=== PATIENT | female | born 1945 | race Caucasian/White ===

== ENCOUNTER 2022-02-28 11:51 | Outpatient (REF) | payer MEDICARE, MEDICAID, SELFPAY ==
--- NOTE | ~2022-02-28 | XR_ITS ---
EXAMINATION: XR FEMUR, LEFT CLINICAL INFORMATION: Fall COMPARISON: Left knee and pelvis and left hip x-ray from the same day TECHNIQUE: AP and lateral views of the left femur were obtained. FINDINGS: There is severe arthritis at the left hip joint as described in the left hip joint report. There is mild arthritis at the left knee joint. The bones are osteopenic. No fracture or dislocation is seen. There is soft tissue arterial calcification. XR/XR femur LT 2V IMPRESSION: Arthritis at the left hip and knee joints. No fracture or dislocation.
--- NOTE | ~2022-02-28 | XR_ITS ---
EXAMINATION: KNEE X-RAY CLINICAL INFORMATION: Pain COMPARISON: None TECHNIQUE: Standing AP view of both knees and lateral and sunrise view of the left knee FINDINGS: Left: There is osteopenia. The left knee joint is higher than the right. There is arthritis at the femoral tibial and patellofemoral joints with small osteophytes. There is slight lateral tilt of patella on the sunrise view. There is an osteophyte at the quadriceps tendon insertion to the patella. There is a small joint effusion. Right: There is osteopenia. There are degenerative changes of the medial femoral tibial joint. There is atherosclerotic disease. XR/XR knee standing BI IMPRESSION: The left knee joint is higher than the right. There is osteopenia, left greater than right. There is atherosclerotic disease. There are degenerative changes at the left patellofemoral joint and small joint effusion.
--- NOTE | ~2022-02-28 | XR_ITS ---
EXAMINATION: XR PELVIS CLINICAL INFORMATION: Pain COMPARISON: None TECHNIQUE: AP view of the pelvis. FINDINGS: Severe left hip arthritis with marked joint space narrowing/bone on bone, osteophyte formation and subchondral cyst formation. Left acetabulum protrusio. There may be abnormal contour of the left femoral head as well. Moderate arthritis at the right hip joint with joint space narrowing and osteophyte formation. Bones of the pelvis are otherwise normal. Atherosclerotic disease.. 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
--- NOTE | ~2022-02-28 | XR_ITS ---
EXAMINATION: KNEE X-RAY CLINICAL INFORMATION: Pain COMPARISON: None TECHNIQUE: Standing AP view of both knees and lateral and sunrise view of the left knee FINDINGS: Left: There is osteopenia. The left knee joint is higher than the right. There is arthritis at the femoral tibial and patellofemoral joints with small osteophytes. There is slight lateral tilt of patella on the sunrise view. There is an osteophyte at the quadriceps tendon insertion to the patella. There is a small joint effusion. Right: There is osteopenia. There are degenerative changes of the medial femoral tibial joint. There is atherosclerotic disease. XR/XR knee LT 2V IMPRESSION: The left knee joint is higher than the right. There is osteopenia, left greater than right. There is atherosclerotic disease. There are degenerative changes at the left patellofemoral joint and small joint effusion.
== END 2022-02-28 11:52 | disposition home or self-care (01) ==
LOC: HO.HOSX 11:51
PROVIDERS: Visit Provider Orthopaedic Surgery
DX: S72.002A Fracture of unspecified part of neck of left femur, initial encounter for closed fracture (principal); M25.552 Pain in left hip; M25.562 Pain in left knee; W19.XXXA Unspecified fall, initial encounter
CPT/HCPCS: 72170; 73552; 73560; 73565; 99202

== ENCOUNTER → 2022-03-14 13:59 | Outpatient (BNVA) | payer MEDICARE, MEDICAID, SELFPAY | PROVIDERS: Visit Provider Orthopaedic Surgery | DX: M16.52 Unilateral post-traumatic osteoarthritis, left hip (principal); S72.002S Fracture of unspecified part of neck of left femur, sequela | CPT/HCPCS: 99212 ==

== ENCOUNTER → 2022-08-04 09:35 | Outpatient (BNVA) | payer MEDICARE, MEDICAID, SELFPAY | PROVIDERS: PCP Registered Nurse; Visit Provider Orthopaedic Surgery | DX: M16.4 Bilateral post-traumatic osteoarthritis of hip (principal); S72.002D Fracture of unspecified part of neck of left femur, subsequent encounter for closed fracture with routine healing; F03.90 Unspecified dementia, unspecified severity, without behavioral disturbance, psychotic disturbance, mood disturbance, and anxiety | CPT/HCPCS: 99212 ==

== ENCOUNTER 2022-09-03 06:01 | Emergency (ER) | payer MEDICARE, MEDICAID, SELFPAY ==
--- NOTE | ~2022-09-03 | XR_ITS ---
EXAMINATION: XR CHEST CLINICAL INFORMATION: Deep vein thrombosis. Pain. COMPARISON: None TECHNIQUE: Frontal view of the chest was obtained. FINDINGS: No significant abnormality is noted involving the heart, lungs, mediastinum, bony thorax or soft tissues. XR/XR chest 1V IMPRESSION: No acute cardiopulmonary findings.
--- NOTE | ~2022-09-03 | US_ITS ---
EXAMINATION: US VENOUS ULTRASOUND WITH DOPPLER LOWER EXTREMITY, BILATERAL CLINICAL INFORMATION: DVT in January 2022. Patient not taking anticoagulation. COMPARISON: None TECHNIQUE: Ultrasound of the deep veins is performed from the hip to the calf with compression sonography and color and pulse Doppler assessment. Spectral analysis with color-flow imaging is performed. FINDINGS: RIGHT: There is normal venous compression and respiratory variation and augmented flow. The visualized common femoral vein, superficial femoral vein, profunda femoral vein, popliteal vein, and the trifurcation region shows no evidence of deep venous thrombosis. There is no significant popliteal fossa cyst. LEFT: There is normal venous compression and respiratory variation and augmented flow. The visualized common femoral vein, superficial femoral vein, profunda femoral vein, popliteal vein, and the trifurcation region shows no evidence of deep venous thrombosis. There is no significant popliteal fossa cyst. Subcutaneous edema. If the patient's symptoms persist, followup ultrasound in 5 days 7 days might be of value to exclude proximal propagation from a non-visualized calf vein. US/US venous duplex LE BI IMPRESSION: No DVT demonstrated in the bilateral lower extremity. Left lower extremity subcutaneous venous edema.
[2022-09-03 06:11] VITALS: BP 157/74; PULSE 74; RESP 14; TEMP 36.8; O2SAT 97; BMI 25.6
--- NOTE | 2022-09-03 06:26 | ECG_ITS ---
Test Reason : NAUSEA Blood Pressure : / mmHG Vent. Rate : 087 BPM Atrial Rate : 087 BPM P-R Int : 144 ms QRS Dur : 090 ms QT Int : 376 ms P-R-T Axes : 042 019 026 degrees QTc Int : 452 ms Sinus rhythm with Premature atrial complexes Moderate voltage criteria for LVH, may be normal variant ( R in aVL , Sokolow-Schulz ) Borderline ECG When compared with ECG of 08-DEC-2011 13:18, Premature atrial complexes are now Present Vent. rate has increased BY 36 BPM T wave inversion no longer evident in Anterior leads Referred By: Generic ED Physician Electronically Signed By:JACKIE STOCKTON
--- NOTE | 2022-09-03 06:33 | ED.GENADULT ---
HPI - General Adult General Chief complaint: Extremity Problem Stated complaint: legs swelling Time Seen by Provider: 09/03/22 06:32 Source: family Mode of arrival: ambulatory Limitations: language barrier History of Present Illness HPI narrative: According to daughter the patient has had diarrhea and nausea. The daughter noticed that both legs are swollen and she is concerned because her mother has a DVT, and patient is on eliquis since January. Onset (ago): day(s) Radiation: non-radiation Severity: mild Associated symptoms: nausea/vomiting and other (diarrhea) Related Data Allergies Allergy/AdvReac Type Severity Reaction Status Date / Time Penicillins [PENICILLINS] Allergy Intermediate RASH Verified 08/04/22 09:55 Penicillin Allergy Unknown Unknown Uncoded 02/28/22 13:57 Review of Systems Review of Systems: Yes Unobtainable due to mental status FORMERLY [facility], [facility]1983 Social History Social History Smoked in Last 30 Days: No Use of substances other than those prescribed or required for medical reasons: No Advance Directives: No Advance Directives Information Provided: Yes Physical Exam ED Vital Signs: Vital Signs - 24 hr 09/03/22 06:11 09/03/22 07:31 Temperature 98.2 F Pulse Rate 74 84 Respiratory Rate 14 16 Blood Pressure 157/74 H Pulse Oximetry 97 95 Oxygen Delivery Method Room Air Room Air BMI result Body Mass Index 25.6 Const General: healthy appearing Nutritional Appearance: average body habitus Orientation/consciousness: oriented to person Limitations: no limitations HENMT Head: Yes normal to inspection Ears: external ears normal General nose exam: Normal external nose present Mouth: Normal oral and palatal mucosa present and oropharynx normal Throat: Yes posterior oropharynx normal Eyes General: appearance normal, both eyes and all related structures Neck Neck: Yes normal visual inspection Chest Chest palpation & inspection: normal inspection of the chest Resp Auscultation: clear to auscultation bilaterally Cardio Jugular venous distension: no JVD Rate: regular rate Rhythm: regular rhythm Heart sounds: S1 normal heart sound present and S2 normal heart sound present GI Inspection: Yes normal to inspection Palpation (GI): Soft to palpation, nontender and No hepatosplenomegaly present Auscultation: normal bowel sounds General: Yes no CVA tenderness Back/Spine/Pelvis Back: no CVA tenderness Skin General skin exam: no rashes or lesions noted Neuro General: oriented to person Cranial nerves: Yes CN's II-XII intact bilaterally Motor exam (neuro): 5/5 motor strength present throughout Extrem Other: bilateral pitting edema Psych Other: mental status baseline Course Reevaluation(s) Reevaluation #1: Patient looks well, no evidence of infection or dvt will dc with family Time: 09:04 Medications Administered Discontinued Medications Generic Name Dose Route Start Last Admin Trade Name Freq PRN Reason Stop Dose Admin Ondansetron HCl 4 mg 09/03/22 06:38 09/03/22 07:26 Ondansetron Hcl 4 Mg/2 Ml Vial IVPUSH 09/03/22 06:39 4 mg ONCE ONE Administration Medical Decision Making Lab Data 09/03/22 07:00 09/03/22 06:59 Labs: Lab Results 09/03/22 09/03/22 09/03/22 Range/Units 06:59 06:59 06:59 WBC (4.8-10.8) X10*3/uL RBC (4.20-5.50) X10*6/uL Hgb (12.0-16.0) g/dl Hct (37.0-47.0) % MCV (80.0-98.0) fL MCH (27.0-33.0) pg MCHC (31.0-35.0) g/dl RDW (11.0-16.0) % Plt Count (160-400) X10*3/uL MPV (9.4-12.3) fL Immature Gran % (Auto) (0.0-0.4) % Neut % (Auto) (45-73) % Lymph % (Auto) (20-40) % [place] % (Auto) (2-11) % Eos % (Auto) (0-4) % Baso % (Auto) (0-2) % Lymph # (Auto) (1.2-4.9) X10*3/uL [place] # (Auto) (0.1-1.2) X10*3/uL Eos # (Auto) (0.0-0.4) X10*3/uL Baso # (Auto) (0.0-0.2) X10*3/uL Abs Immat Gran (auto) (0.00-0.03) X10*3/uL Absolute Neuts (auto) (2.0-8.3) x10*3/uL Absolute Nucleated RBC (0.0-0.012) X10*3/uL Nucleated RBC % (auto) (0.0-0.2) /100WBC D-Dimer High Sensitivty NG/ML Sodium 138 (135-145) mmol/L Potassium 4.2 (3.3-5.1) mmol/L Chloride 106 (96-108) mmol/L Carbon Dioxide 24 (22-29) mmol/L Anion Gap 12 (12-20) BUN 21 H (9-16) mg/dL Creatinine 0.68 (0.5-1.4) mg/dL Estim Creat Clear Calc 60.6 Estimated GFR > 60 Random Glucose 119 H (60-115) mg/dL Calcium 10.0 (8.4-10.2) mg/dL Troponin I High Sens 5.5 (<3.5-17.0) ng/L B-Natriuretic Peptide 51 (<100) pg/mL Influenza Type A (PCR) (Negative) Influenza Type B (PCR) (Negative) RSV RNA Qual (PCR) (Negative) SARS-CoV-2 RNA (RT-PCR) (Negative) 09/03/22 09/03/22 09/03/22 Range/Units 06:59 07:00 07:01 WBC 8.9 (4.8-10.8) X10*3/uL RBC 3.37 L (4.20-5.50) X10*6/uL Hgb 9.6 L (12.0-16.0) g/dl Hct 28.6 L (37.0-47.0) % MCV 84.9 (80.0-98.0) fL MCH 28.5 (27.0-33.0) pg MCHC 33.6 (31.0-35.0) g/dl RDW 13.1 (11.0-16.0) % Plt Count 195 (160-400) X10*3/uL MPV 9.1 L (9.4-12.3) fL Immature Gran % (Auto) 0.2 (0.0-0.4) % Neut % (Auto) 87.3 H (45-73) % Lymph % (Auto) 8.4 L (20-40) % [place] % (Auto) 3.9 (2-11) % Eos % (Auto) 0.1 (0-4) % Baso % (Auto) 0.1 (0-2) % Lymph # (Auto) 0.8 L (1.2-4.9) X10*3/uL [place] # (Auto) 0.4 (0.1-1.2) X10*3/uL Eos # (Auto) 0.0 (0.0-0.4) X10*3/uL Baso # (Auto) 0.0 (0.0-0.2) X10*3/uL Abs Immat Gran (auto) 0.02 (0.00-0.03) X10*3/uL Absolute Neuts (auto) 7.8 (2.0-8.3) x10*3/uL Absolute Nucleated RBC 0.000 (0.0-0.012) X10*3/uL Nucleated RBC % (auto) 0.0 (0.0-0.2) /100WBC D-Dimer High Sensitivty 549 NG/ML Sodium (135-145) mmol/L Potassium (3.3-5.1) mmol/L Chloride (96-108) mmol/L Carbon Dioxide (22-29) mmol/L Anion Gap (12-20) BUN (9-16) mg/dL Creatinine (0.5-1.4) mg/dL Estim Creat Clear Calc Estimated GFR Random Glucose (60-115) mg/dL Calcium (8.4-10.2) mg/dL Troponin I High Sens (<3.5-17.0) ng/L B-Natriuretic Peptide (<100) pg/mL Influenza Type A (PCR) NEGATIVE (Negative) Influenza Type B (PCR) NEGATIVE (Negative) RSV RNA Qual (PCR) NEGATIVE (Negative) SARS-CoV-2 RNA (RT-PCR) NEGATIVE (Negative) Independent Interpretation I performed an independent interpretation of an: EKG, Plain X-Ray (My interpretation of this xray is no infiltrate) and Ultrasound (IMPRESSION: No DVT demonstrated in the bilateral lower extremity. Left lower extremity subcutaneous venous edema. Dictated By:Christian Vieira MDSigned By:<Electronically signed by Christian Vieira MD in [place]>09/03/22 [id number]) Interpretation: my interpretation is sinus rhythm rate of 85, no st or twave changes, occaisional apc Discharge Plan Discharge Clinical Impression: Edema, peripheral Patient Disposition: Home, Self-Care Instructions: Leg Edema (ED) Referrals: [facility] [Primary Care Provider] - 1 week Interventions: ED Discharge Assessment Last Done: 09/03/22 09:27 Discharge Date/Time: 09/03/22 09:28
--- OUTSIDE RECORDS SUMMARY | 2022-09-03 06:52 | XMS_ITS | Continuity of Care Document ---
:1945 Author Organization [facility] Address [address] [place] [address]- Care Team Providers Name Role Phone Ro , Johnny Cruz Primary Care Physician Encounter [facility] Date(s): 05/13/21 - 08/18/[address] [address]- Attending Physician: Not on Staff, Attending
--- OUTSIDE RECORDS SUMMARY | 2022-09-03 06:52 | XMS_ITS | Continuity of Care Document ---
:1945 Author Organization [facility] Address [address] [place] [address]- Care Team Providers Name Role Phone Ro , Johnny Cruz Primary Care Physician Encounter [facility] Date(s): 06/21/21 - 08/19/[address] [address]- Attending Physician: Sreedhar Hernández MD Admitting Physician: Sreedhar Hernández MD
--- OUTSIDE RECORDS SUMMARY | 2022-09-03 06:52 | XMS_ITS | Continuity of Care Document ---
:1945 Author Organization [facility] Address [address] [place] [id number]- Care Team Providers Name Role Phone Ro Johnny HUMPHREY Primary Care Physician Encounter [facility] ACCT R [id number] Date(s): 07/20/21 - 08/19/[address] [address]- Attending Physician: Dee Darnell Admitting Physician: Dee Darnell Referring Physician: Dee Darnell
[2022-09-03 07:06] LABS: MANUAL DIFF FLAG NO
--- NOTE | 2022-09-03 07:09 | PC.NURSE ---
this rn notified dr gudino of pt hx of dvt and refusing to take prescribed eliquis. per md will discuss with oncoming md. dr chaves came in and assessed pt. discussed case with daughter at bedside. iv place and labs obtained and sent down to lab
[2022-09-03 07:16] LABS: Basophils Percent Auto 0.1 % (0-2); Eosinophils Percent Auto 0.1 % (0-4); Hematocrit 28.6 % (37.0-47.0); Hemoglobin 9.6 g/dl (12.0-16.0); Imm Gran Abs Auto 0.02 X10*3/uL (0.00-0.03); Imm Gran Pct Auto 0.2 % (0.0-0.4); Lymphocytes Absolute Auto 0.8 X10*3/uL (1.2-4.9); Lymphocytes Percent Auto 8.4 % (20-40); Mean Corpuscular HGB Conc 33.6 g/dl (31.0-35.0); Mean Corpuscular Hemoglobin 28.5 pg (27.0-33.0); Mean Corpuscular Volume 84.9 fL (80.0-98.0); Mean Platelet Volume 9.1 fL (9.4-12.3); Monocytes Absolute Auto 0.4 X10*3/uL (0.1-1.2); Monocytes Percent Auto 3.9 % (2-11); Neutrophils Absolute Auto 7.8 x10*3/uL (2.0-8.3); Neutrophils Percent Auto 87.3 % (45-73); Platelet Count 195 X10*3/uL (160-400); Red Blood Count 3.37 X10*6/uL (4.20-5.50); Red Cell Distribution Width 13.1 % (11.0-16.0); White Blood Count 8.9 X10*3/uL (4.8-10.8)
[2022-09-03 07:22] LABS: Anion Gap 12 (12-20); Blood Urea Nitrogen 21 mg/dL (9-16); Carbon Dioxide 24 mmol/L (22-29); Chloride 106 mmol/L (96-108); Creatinine Clr Calc Pharmacy 60.6; Estimated Glomerular Filt Rate > 60; Glucose Random 119 mg/dL (60-115); Potassium 4.2 mmol/L (3.3-5.1); Sodium 138 mmol/L (135-145)
[2022-09-03 07:24] LABS: D Dimer High Sensitivity 549 NG/ML
[2022-09-03] MEDS: ondansetron HCL 4 MG/2 ML VIAL IVPUSH (07:26)
[2022-09-03 07:29] LABS: B Type Natriuretic Peptide 51 pg/mL (<100); Troponin-I High Sensitivity 5.5 ng/L (<3.5-17.0)
[2022-09-03 07:31] VITALS: PULSE 84; RESP 16; O2SAT 95
--- NOTE | 2022-09-03 07:35 | PC.NURSE ---
Pt resting comfortably, denies any concerns at this time, reports hungry. B/L LE swelling worse on right however daughter states prior DVT to left with treatment on Eliquis however pt noncompliant with nuclear medicine physician. NSR on monitor with PACS. Breathing easy
[2022-09-03 07:49] LABS: Influenza A PCR NEGATIVE (Negative); Influenza B PCR NEGATIVE (Negative); Resp Syncy Virus RNA Qual PCR NEGATIVE (Negative); SARS COV2 PCR INHOUSE NEGATIVE (Negative)
== END 2022-09-03 09:28 | disposition home or self-care (01) ==
PROVIDERS: Emergency Provider Emergency Medicine
DX: R60.0 Localized edema (principal); R11.2 Nausea with vomiting, unspecified; Z20.822 Contact with and (suspected) exposure to COVID-19; F03.90 Unspecified dementia, unspecified severity, without behavioral disturbance, psychotic disturbance, mood disturbance, and anxiety; Z86.718 Personal history of other venous thrombosis and embolism; Z91.14 Patient's other noncompliance with medication regimen; Z20.828 Contact with and (suspected) exposure to other viral communicable diseases
CPT/HCPCS: 0241U; 36415; 71045; 80048; 83880; 84484; 85025; 85379; 93005; 93970; 96374; 99284; J2405

== ENCOUNTER 2022-11-11 11:14 | Emergency (ER) | payer MEDICARE, MEDICAID, SELFPAY ==
[2022-11-11 11:19] VITALS: BP 129/73; PULSE 82; RESP 16; TEMP 36.8; O2SAT 98; BMI 27.4
--- NOTE | 2022-11-11 11:24 | ED.GENADULT ---
HPI - General Adult General Chief complaint: Extremity Problem Stated complaint: scratched legs,L leg pain Time Seen by Provider: 11/11/22 11:24 Source: patient, family (daughter) and full time staff interpreter Mode of arrival: ambulatory Limitations: language barrier History of Present Illness HPI narrative: Patient is a 77 year old assigned female at with a history of DM and osteoarthritis presenting to the emergency department today with chronic left hip pain and bilateral lower leg redness and itching. Patient's daughter states that the patient has diabetes and has been scratching at her lower legs more lately and she is concerned about how they look. Patient denies any dizziness, lightheadedness, abdominal pain, nausea, vomiting, fever, chills, blurry vision, double vision, loss of vision, chest pain, difficulty breathing, shortness of breath, back pain, night sweats, pain with urination, increased urinary frequency, increased urinary urgency, blood in her urine or stool, syncope or a near syncopal episode, recent trauma or falls, bowel incontinence, bladder incontinence, bowel retention, bladder retention, or any other complaints at this time. Onset (ago): day(s) Location: left, right and lower extremity Severity: mild Severity scale (1-10): 3 Relieving factors: none Exacerbating factors: none Associated symptoms: denies other symptoms Treatments prior to arrival: none Related Data Previous Rx's Medication Instructions Recorded cephalexin 500 mg capsule 500 mg PO Q6H 7 days #28 caps 11/11/22 miscellaneous medical supply #1 ea 11/11/22 Allergies Allergy/AdvReac Type Severity Reaction Status Date / Time Penicillins [PENICILLINS] Allergy Intermediate RASH Verified 11/11/22 11:19 Penicillin Allergy Unknown Unknown Uncoded 02/28/22 13:57 Review of Systems Constitutional: Constitutional: Reports no additional constitutional complaints, Denies chills, Denies fever(s) and Denies night sweats Eyes: Eyes: Reports no additional eye complaints, Denies blurry vision, Denies change in vision, Denies diplopia, Denies eye discharge, Denies loss of vision and Denies eye pain ENT: Denies dizziness Cardiovascular: Cardiovascular: Reports no additional cardiovascular complaints, Denies chest pain, Denies lightheadedness, Denies Loss of Consciousness and Denies dyspnea Respiratory: Respiratory: Reports no additional respiratory complaints and Denies dyspnea Gastrointestinal: Gastrointestinal: Reports no additional gastrointestinal complaints, Denies abdominal pain, Denies melena, Denies hematochezia, Denies change in bowel habits and Denies change in stool character Genitourinary: Genitourinary: Denies hematuria, Denies urinary frequency, Denies dysuria, Denies urinary incontinence, Denies urinary hesitancy and Denies urinary urgency Musculoskeletal: Musculoskeletal: Reports no additional musculoskeletal complaints, Denies numbness and Denies tingling Integumentary/Breasts: Comments: bilateral lower leg redness Neurologic: Denies dizziness, Denies loss of vision, Denies numbness and Denies tingling Psychiatric: Psychiatric: Reports no additional psychiatric complaints Endocrine: Endocrine: Reports no additional endocrine complaints Hematologic/Lymphatic: Hematologic/Lymphatic: Reports no additional hematologic/lymphatic complaints Allergic/Immunologic: Allergic/Immunologic: Reports no additional allergic/immunologic complaints PMFSH Past Medical History Attestation statement: The following information was validated with the patient. (all information was validated with the patient's daughter) Source: old records reviewed, obtained from family (patient's daughter) and nursing notes reviewed Social History Social History Advance Directives: Yes Advance Directives Information Provided: No Advance Directives on File: No Physical Exam ED Vital Signs: Vital Signs - 24 hr 11/11/22 11:19 Temperature 98.2 F Pulse Rate 82 Respiratory Rate 16 Blood Pressure 129/73 Pulse Oximetry 98 Oxygen Delivery Method Room Air BMI result Body Mass Index 27.4 Const General: cooperative, no acute distress, alert and awake Nutritional Appearance: well nourished Orientation/consciousness: patient oriented x3 Limitations: no limitations [facility] Head: Yes normal to inspection and Yes atraumatic Ears: hearing grossly normal bilaterally and external ears normal General nose exam: Normal external nose present, no nasal discharge noted and no epistaxis Face and sinus: Yes normal facial exam, No abrasion and No laceration Mouth: Normal oral and palatal mucosa present, no drooling and no muffled voice Eyes General: appearance normal, both eyes and all related structures Periorbital: periorbital findings normal Eyelids: Yes eyelids normal Conjunctivae: conjunctivae normal Pupils: Equal, round and reactive pupils present EOM: EOMs intact bilaterally Neck Neck: Yes normal visual inspection, Yes full ROM and Yes no lymphadenopathy Chest Chest palpation & inspection: normal inspection of the chest Resp Effort & Inspection: normal respiratory effort and able to speak in complete sentences Auscultation: clear to auscultation bilaterally Cardio Rate: regular rate Rhythm: regular rhythm GI Inspection: Yes normal to inspection Skin Other: patient's bilateral lower legs are erythematous with scattered open areas consistent with venous stasis dermatitis Neuro General: patient oriented x3 and moves all extremities Cranial nerves: Yes Equal, round and reactive pupils present Cognition (Neuro): normal cognition Motor exam (neuro): 5/5 motor strength present throughout Sensory Exam: Normal double simultaneous stimulation for sensation Coordination: [id number] test normal Extrem General: Yes normal to inspection, Yes full ROM and Yes capillary refill normal Psych Appearance: grossly normal Mental Status: mental status grossly normal Affect: normal affect Attitude: cooperative Thought process: Normal thought process present Thought content: Normal thought content present Insight: Good insight present (Psych) Medical Decision Making Medical Decision Making MDM Narrative: Patient is a 77 year old assigned female at with a history of DM presenting to the emergency department today with bilateral lower leg redness. Patient's physical exam showed mild erythema with multiple small open areas to bilateral lower extremities but was otherwise unremarkable. I explained my physical exam findings to the patient and the patient's daughter. I answered all questions asked by the patient and the patient's daughter. Patient's clinical presentation is most consistent with venous stasis dermatitis however, the patient and her daughter expressed concern of an underlying infection due to the patient's diabetes status. Will cover with PO ABX. I stressed the importance of the patient taking her medication as prescribed. I stressed the importance of the patient following up with her primary care provider. I stressed the importance of the patient returning to the emergency department immediately if her symptoms were to worsen or if she were to develop any dizziness, shortness of breath, difficulty breathing, chest pain, blurry vision, loss of vision, nausea, vomiting, abdominal pain, fever, chills, back pain, or any other complaints. Patient and the patient's daughter verbalized agreement and understanding with this treatment plan and discharge. Differential Diagnosis Differential Diagnoses: The differential diagnosis associated with the presentation includes venous stasis dermatitis, cellulitis Independent Historian Clinical information obtained from an independent historian. History obtained from or confirmed by: Other (patient's daughter) Chronic Conditions Patient?s care impacted by: Diabetes Discharge Plan Discharge Clinical Impression: Venous stasis dermatitis, Cellulitis Patient Disposition: Home, Self-Care Instructions: Cellulitis (ED), Venous Insufficiency (DC) Additional Instructions: Follow up with your primary care provider. Return to the emergency department immediately if your symptoms worsen or if you develop any dizziness, shortness of breath, difficulty breathing, chest pain, blurry vision, loss of vision, nausea, vomiting, abdominal pain, fever, chills, back pain, or any other complaints. Prescriptions: New cephalexin 500 mg capsule 500 mg PO Q6H 7 Days Qty: 28 0RF (DME) miscellaneous medical supply Misc See Rx Instructions .Route Qty: 1 0RF Rx Instructions: As directed Referrals: Lilly King FNP [Primary Care Provider] - Discharge Date/Time: 11/11/22 12:05 Print Language: Indian
== END 2022-11-11 12:05 | disposition home or self-care (01) ==
LOC: HO.ED 11:37
PROVIDERS: Emergency Provider Student in an Organized Health Care Education/Training Program; PCP Registered Nurse
DX: I87.2 Venous insufficiency (chronic) (peripheral) (principal); L03.116 Cellulitis of left lower limb; L03.115 Cellulitis of right lower limb
CPT/HCPCS: 99281

== ENCOUNTER 2023-05-10 13:12 | Outpatient (REF) | payer MEDICARE, MEDICAID, SELFPAY ==
--- NOTE | ~2023-05-10 | US_ITS ---
EXAMINATION: US VENOUS ULTRASOUND WITH DOPPLER LOWER EXTREMITY, BILATERAL CLINICAL INFORMATION: Chronic pedal edema. COMPARISON: None available. TECHNIQUE: Ultrasound of the deep veins is performed from the hip to the calf with compression sonography and color and pulse Doppler assessment. Spectral analysis with color-flow imaging is performed. There is some limitations with compression secondary to patient discomfort. FINDINGS: RIGHT: There is normal venous compression and respiratory variation and augmented flow. The visualized common femoral vein, superficial femoral vein, profunda femoral vein, popliteal vein, and the trifurcation region shows no evidence of deep venous thrombosis. No right popliteal cyst. Mild right calf subcutaneous edema. LEFT: There is normal venous compression and respiratory variation and augmented flow. The visualized common femoral vein, superficial femoral vein, profunda femoral vein, popliteal vein, and the trifurcation region shows no evidence of deep venous thrombosis. No left popliteal cyst. Moderate left calf subcutaneous edema. US/US venous duplex LE BI IMPRESSION: 1. No evidence for deep venous thrombosis in the visualized veins of the bilateral lower extremity. 2. Mild to moderate subcutaneous edema in the calves bilaterally, left greater than right.
== END 2023-05-10 13:13 | disposition home or self-care (01) ==
LOC: HO.US 13:12
PROVIDERS: PCP Registered Nurse; Visit Provider Family Medicine
DX: R60.0 Localized edema (principal)
CPT/HCPCS: 93970

== ENCOUNTER → 2023-07-10 10:29 | Outpatient (REF) | payer MEDICARE, MEDICAID, SELFPAY ==
--- NOTE | 2023-07-10 10:36 | CA_ITS ---
Transthoracic Echocardiogram Patient (Last, First, Middle): Ida Mccall, Gender: Female Date of : 1945 Age: 78 Procedure Date: 07/10/2023 Procedure Type: Transthoracic Echocardiogram Location: OP Height: 160.02 cm Weight: 58.97 kg BSA: 1.61 m2 Heart Rate: 51 bpm BP: 170 / 70 mmHg Battery Vent Plug Inserter: JEAN MARIE Referring MD: Gabriel Bustos MD Wellness Ambassador: Paolo Flores MD Symptoms: HTN CHRONIC PEDAL EDEMA R60.0 Study Quality: Technically Difficult ECG Rhythm: Bradycardia Conclusions: - 1. Normal LV ejection fraction 55-60% with impaired relaxation filling pattern 2. Early mild aortic stenosis 3. Normal RV systolic pressure 4. No gross pericardial effusion Findings Left Ventricle Normal left ventricular size, thickness, and systolic function. The visually estimated ejection fraction is between 55-60%. Spectral Doppler is indicative of an impaired relaxation filling pattern. Right Ventricle Normal right ventricular cavity size and systolic function. Atria The left atrium is normal in size. Interatrial shunt cannot be excluded. The right atrium is normal in size. Aortic Valve There is mild calcification of the aortic valve. There is mild aortic valve stenosis. There is no aortic valve regurgitation. Mitral Valve Likely normal mitral valve structure and function. There is trace mitral valve regurgitation. There is no mitral valve stenosis. Pulmonic Valve The pulmonic valve was not well visualized. Tricuspid Valve Likely normal tricuspid valve structure and function. There is trace tricuspid valve regurgitation. The right ventricular systolic pressure is normal. Normal right atrial pressure. There is no evidence of pulmonary hypertension. Great Vessels All visible segments of the aorta are normal in size. The pulmonary artery was not well visualized. Venous The inferior vena cava is normal in size and collapses greater than 50% with inspiration. Pericardium/Pleural There is no evidence of pericardial effusion. Prior Study Comparison No prior study available for comparison. Measurements 2D Linear Measurements IVSd: 0.98 0.6-0.9/0.6-1.0 cm LVIDd: 4.83 3.9-5.3/4.2-5.9 cm LVIDd Index: 3.00 2.4-3.2/2.2-3.1 cm/m2 LVIDs: 2.62 2.0-3.6 cm LVPWd: 0.89 0.7-1.1 cm LA Diam: 3.00 2.7-3.8/3.0-4.0 cm LAIDs Index: 1.86 1.5-2.3 cm/m2 LV Mass: 224.32 67-162/88-224 g LV Mass Index: 139.33 43-95/49-115 g/m2 LVOT Diam: 1.90 3.0+(-)1.3 cm 2D Systolic Function EF 4C: 59.90 >55% EF 2C: 50.60 >55% EF BiP: 54.80 >55% Mitral Valve MV Pk E: 0.92 MV PK A: 0.88 MV Decel Time: 252.00 E/A: 1.00 E'Lateral: 11.60 E'Medial: 8.38 E/E' Med: 11.00 E/E' Lat: 7.90 PHT: 74.00 MVA PHT: 2.97 Decel Collier: 3.65 Aortic Valve AoV Pk Tony: 1.90 AoV Mn Tony: 1.24 AoV VTI: 0.45 AoV Pk Grad: 14.00 Aov Mn Grad: 7.00 ANA Cont.VTI: 1.74 LVOT LVOT Pk Tony: 1.09 LVOT Mn Tony: 0.74 LVOT VTI: 0.27 LVOT Pk Grad: 5.00 LVOT Mn Grad: 3.00 LVOT Diam: 1.90 LVOT Area: 2.84 Diastolic Function MV Pk E: 0.92 MV Pk A: 0.88 E/A: 1.00 E'Medial: 8.38 E/E' Med: 11.00 E' Laterial: 11.60 E/E' Lat: 7.90 Right Ventricle TAPSE (mm): 22.40 TVS' Tony: 13.60 Tricuspid Valve TR Pk Tony: 2.03 TR Pk Grad: 16.00 RA Press: 3.00 RVSP: 19.00 Great Vessels Aorta Sinus of Valsalva: 3.10 2.0-3.5 cm Ao Asc: 3.20 2.1-3.4 cm Pulmonary Valve PV Pk Tony: 0.97 Peak PV Grad: 4.00 Updated in Other Vendor System with Status of Final Paolo Flroes MD electronically signed on 07/10/2023 12:27:30 PM with status of Final
== END ==
LOC: HO.CARD 10:29
PROVIDERS: PCP Registered Nurse; Visit Provider Family Medicine
DX: R60.0 Localized edema (principal)
CPT/HCPCS: 93306

== ENCOUNTER → 2023-07-10 10:36 | Outpatient (BNV) | payer MEDICARE, MEDICAID, SELFPAY | PROVIDERS: PCP Registered Nurse; Visit Provider Internal Medicine Cardiovascular Disease | DX: I35.0 Nonrheumatic aortic (valve) stenosis (principal) | CPT/HCPCS: 93306 ==

== ENCOUNTER 2023-07-20 09:40 | Outpatient (AMB) | payer MEDICARE, MEDICAID, SELFPAY ==
--- NOTE | 2023-07-20 09:44 | A.OFFVIS_ITS ---
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 Unclear what his exactly happened and there is quite a bit of confusion within her family. This all began apparently in [place]. She developed a lower extremity DVT and was started on Eliquis. Apparently at the facility she has been refusing her medications. She has had previous venous Dopplers done at [facility] on 02/04/2022 which was focally occlusive in the left Peroni a artery a in addition she had a venous Doppler in October 2022. She now presents for follow-up evaluation regarding lower extremity swelling. They deny any previous venous interventions. Her biggest complaint is her arthritis and left hip pain. It has been affecting there daily activities including including walking. It is noted more so in left leg. Patient denies any previous venous surgery or injections. Patient does have a previous history of DVT as noted above. Noncompliant with Eliquis Patient denies any history of phlebitis. Trial of compression includes - [id number] They now present for vascular evaluation regarding their varicose veins. Review of Systems Const Reports as per HPI ENT Reports no additional complaints Card Denies chest pain, Denies chest pain at rest and Denies chest pain with activity Resp Denies chest congestion and Denies cough GI Reports no additional complaints Musc Details: pain over varicosities, aching of lower extremities, swelling, cramping, heaviness and tiredness, itching Denies abnormal gait Skin/Breast Reports pruritus and Denies wounds Neuro Reports no additional complaints and Denies abnormal gait Psych Denies no additional complaints Physical Exam Vital Signs: BMI result Body Mass Index 27.4 Const General: cooperative, healthy appearing and comfortable Orientation/consciousness: oriented to person, oriented to place and oriented to time Neck Carotids: no bruits Chest Chest palpation & inspection: normal inspection of the chest and normal palpation of entire chest wall Resp Effort & Inspection: normal respiratory effort and able to speak in complete sentences Cardio Rate: regular rate Heart sounds: S1 normal heart sound present and S2 normal heart sound present Peripheral pulses: Peripheral pulses 2+ throughout GI Inspection: Yes normal to inspection Skin Other: +2 edema, left greater than right CEAP Classification C4 - skin color changes Ep - Etiology Primary As - superficial veins P - reflux General skin exam: dry skin Neuro General: oriented to person, oriented to place and oriented to time Extrem Right lower extremity: full ROM, normal capillary refill and edema Left lower extremity: full ROM, normal capillary refill and edema Psych Mental Status: mental status grossly normal Assessment & Plan Assessment & Plan (1) Varicose veins of left lower extremity with inflammation: Code(s): I83.12 - Varicose veins of left lower extremity with inflammation Plan: In short, the patient has evidence of venous insufficiency. I have discussed the pathophysiology with the patient. In addition I have provided informational material regarding venous disease to the patient. We have discussed conservative measures including compression, elevation, and exercise. I have also provided a handout regarding appropriate use of compression stockings and where to purchase good compression stockings as well. I have taken the liberty of ordering venous insufficiency testing with the patient. They will follow up with me after testing. The patient had an opportunity to ask questions regarding the treatment plan. All questions were answered. Imaging studies, laboratory studies and physical exam results were discussed and reviewed in detail. No major barriers to understanding were identified. The patient expressed understanding and agreement with the above treatment plan. The patient is aware they should contact our office by phone for worsening of the current condition or the appearance of new symptoms. Thank you for allowing me to participate in the vascular care of this patient. If you have any questions or concerns regarding the treatment for the above condition please do not hesitate to contact me. The office telephone contact is [phone]. This note is constructed using voice recognition software. While every effort has been made to ensure accuracy, welfare worker errors may have been included. Thank you for allowing me to participate in the care of your patient. Yours sincerely, Jacob Rivera MD, FACS, R.P.V.I. Orders: Orders US venous duplex LE BI 1 Week I83.12 - Varicose veins of left lower extremity with inflammation Coding Level of Care Code New Pt Level 4 (42862) Diagnoses Varicose veins of left lower extremity with inflammation I83.12
[2023-07-20 09:47] VITALS: BMI 27.4
== END 2023-07-20 10:21 | disposition home or self-care (01) ==
PROVIDERS: PCP Registered Nurse; Visit Provider Surgery Vascular Surgery
DX: I83.12 Varicose veins of left lower extremity with inflammation (principal)
CPT/HCPCS: 99203

== ENCOUNTER → 2023-07-20 09:40 | Outpatient (BNVA) | payer MEDICARE, MEDICAID, SELFPAY | PROVIDERS: PCP Registered Nurse; Visit Provider Surgery Vascular Surgery | DX: I83.12 Varicose veins of left lower extremity with inflammation (principal); Z86.718 Personal history of other venous thrombosis and embolism; Z91.148 Patient's other noncompliance with medication regimen for other reason | CPT/HCPCS: 99202 ==

== ENCOUNTER 2023-08-09 10:32 | Outpatient (REF) | payer MEDICARE, MEDICAID, SELFPAY ==
--- NOTE | ~2023-08-09 | US_ITS ---
EXAMINATION: US VENOUS BILATERAL LOWER EXTREMITIES (REFLUX EXAM) CLINICAL INDICATION: Leg pain and varicose veins. COMPARISON: None TECHNIQUE: Color flow triplex imaging and compression Doppler was performed to evaluate both the deep and the superficial systems bilaterally. To evaluate the superficial system, the examination was performed in the upright position. Color-flow Doppler ultrasound and compression ultrasound were utilized. In addition, maneuvers were utilized to demonstrate reflux. FINDINGS: 1. DEEP VENOUS ULTRASOUND OF THE RIGHT LOWER EXTREMITY: Respiratory variation, normal compression and augmented flow are noted in the right common femoral vein as well as the right popliteal vein and there is no evidence of deep venous thrombosis at these locations. There is no evidence of reflux in the deep system in either the common femoral vein or the popliteal vein. There is no evidence of a Juárez's cyst. 2. SUPERFICIAL ULTRASOUND WITH DOPPLER OF RIGHT LOWER EXTREMITY: The right great saphenous vein at the saphenofemoral junction measures 5 mm, at the proximal thigh 5 mm, at the mid thigh 2 mm, above the knee 4 mm, at the knee 4 mm, [id number] 2 mm, midcalf 2 mm and at the ankle measures 2 mm. Reflux is present in the great saphenous vein from the proximal thigh down to below the knee with reflux times of greater than 2.5 seconds. Duplicated Right Great Saphenous Vein: None The right small saphenous vein measures 2 mm and shows no reflux. Accessory Vein of Giacomini: None Incompetent Perforators: None Varices Present: None 3. DEEP VENOUS ULTRASOUND OF THE LEFT LOWER EXTREMITY: Respiratory variation, normal compression and augmented flow are noted in the left common femoral vein as well as the left popliteal vein and there is no evidence of deep venous thrombosis at these locations. There is no evidence of reflux in the deep system in either the common femoral vein or the popliteal vein. There is no evidence of a Juárez's cyst. 4. SUPERFICIAL ULTRASOUND WITH DOPPLER OF LEFT LOWER EXTREMITY: Left great saphenous vein at the saphenofemoral junction measures 5 mm, at the proximal thigh 4 mm, at the mid thigh 3 mm, above the knee 2 mm, at the knee 1 mm, [id number] 2 mm, midcalf 2 mm and at the ankle measures 2 mm. There is no reflux demonstrated in the left great saphenous vein. Duplicated Left Great Saphenous Vein: None The left small saphenous vein measures 1 mm and shows no reflux. Accessory Vein of Giacomini: None Incompetent Perforators: None. Varices Present: Varices are present bilaterally with a 3 mm varix in the right calf demonstrating reflux. US/US venous duplex LE BI IMPRESSION: 1. No evidence of reflux or thrombus in the common femoral veins or popliteal veins bilaterally. 2. Reflux in the right great saphenous vein as described above.
== END 2023-08-09 10:33 | disposition home or self-care (01) ==
LOC: HO.US 10:32
PROVIDERS: Visit Provider Surgery Vascular Surgery
DX: I83.12 Varicose veins of left lower extremity with inflammation (principal)
CPT/HCPCS: 93970

== ENCOUNTER 2023-11-07 14:15 | Outpatient (AMB) | payer MEDICARE, MEDICAID, SELFPAY ==
--- NOTE | 2023-11-07 14:48 | A.OFFVIS_ITS ---
Intake Vital Signs 11/07/23 14:50 Height 5 ft 6 in Weight 170 lb BMI 27.4 Intake Visit Reasons: Follow Up 08/09 [facility] Intake Note: follow up [facility] 08/09/2023, pt has Hx of DVT, refuses to take blood thinner ( Eliquis) also has difficulty ambulating and left hip pain. Was recently hospitalized for fall - went to [facility]. Pts main complaint is LE swelling Accompanied by: Daughter Allergies Penicillins [PENICILLINS] Allergy (Intermediate, Verified 11/07/23 14:56) RASH HPI Follow Up 08/09 [facility] HPI Details Very pleasant 70-year-old female presents for follow-up regarding evaluation lower extremity swelling. She reports that this all began from a trip and [place]. She developed a DVT and was on Eliquis. She had venous Dopplers performed on 02/04/2022. She now presents for follow-up with venous insufficiency testing Review of Systems Const Reports as per HPI ENT Reports no additional complaints Card Denies chest pain, Denies chest pain at rest and Denies chest pain with activity Resp Denies chest congestion and Denies cough GI Reports no additional complaints Musc Details: pain over varicosities, aching of lower extremities, swelling, cramping, heaviness and tiredness, itching Denies abnormal gait Skin/Breast Reports pruritus and Denies wounds Neuro Reports no additional complaints and Denies abnormal gait Psych Denies no additional complaints Physical Exam Vital Signs: BMI result Body Mass Index 27.4 Const General: cooperative, healthy appearing and comfortable Orientation/consciousness: oriented to person, oriented to place and oriented to time Neck Carotids: no bruits Chest Chest palpation & inspection: normal inspection of the chest and normal palpation of entire chest wall Resp Effort & Inspection: normal respiratory effort and able to speak in complete sentences Cardio Rate: regular rate Heart sounds: S1 normal heart sound present and S2 normal heart sound present Peripheral pulses: Peripheral pulses 2+ throughout GI Inspection: Yes normal to inspection Skin Other: +2 edema, bilateral lower extremity CEAP Classification C4 - skin color changes Ep - Etiology Primary As - superficial veins P - reflux General skin exam: dry skin Neuro General: oriented to person, oriented to place and oriented to time Extrem Right lower extremity: full ROM, normal capillary refill and edema Left lower extremity: full ROM, normal capillary refill and edema Psych Mental Status: mental status grossly normal Results Reviewed Results Reviewed: Brief summary of venous insufficiency testing is as follows: right great saphenous vein: Positive but vein small in caliber right small saphenous vein: negative right accessory vein: none present left great saphenous vein: negative left small saphenous vein: negative left accessory vein: none present Please note there is no evidence of any venous aneurysms or significant tortuosity Assessment & Plan Assessment & Plan (1) Varicose veins of left lower extremity with inflammation: Code(s): I83.12 - Varicose veins of left lower extremity with inflammation Plan: At the current time the patient only has right lower extremity reflux. This does appear to be smaller in caliber. Her biggest complaint is her left lower extremity which I do not believe is related to her venous disease. At the current time I did discuss conservative measures including compression elevation and exercise. She will follow up with us on an as-needed basis. Thank you for allowing us to assist in her care. If there are any questions or concerns please do not hesitate to contact us. Coding Level of Care Code Est Pt Level 3 (73211) Diagnoses Varicose veins of left lower extremity with inflammation I83.12
[2023-11-07 14:50] VITALS: BMI 27.4
== END 2023-11-07 15:37 | disposition home or self-care (01) ==
LOC: HO.HVS 14:15
PROVIDERS: PCP Registered Nurse; Visit Provider Surgery Vascular Surgery
DX: I83.12 Varicose veins of left lower extremity with inflammation (principal)
CPT/HCPCS: 99213

== ENCOUNTER → 2023-11-07 14:15 | Outpatient (BNVA) | payer OTHER, SELFPAY | PROVIDERS: PCP Registered Nurse; Visit Provider Surgery Vascular Surgery | DX: I83.12 Varicose veins of left lower extremity with inflammation (principal) | CPT/HCPCS: 99212 ==

== ENCOUNTER 2024-09-18 23:10 | Emergency (ER) | payer OTHER, SELFPAY ==
--- NOTE | ~2024-09-18 | XR_ITS ---
CLINICAL HISTORY: deformity in right hip 3 view, pelvis and bilateral hips Comparison: DX/SR - XR PELVIS 1-2V - 02/28/22 14:07 EDT Findings: No acute fracture or dislocation injury identified. Severe degenerative changes are redemonstrated at the left hip with loss of the joint space superiorly and chronic periarticular bony remodeling. There is a protrusio deformity of the left acetabulum. The right hip appears intact. Vascular calcifications are present. IMPRESSION: 1. No acute fracture or dislocation injury identified at the bony pelvis or bilateral hips. 2. Severe degenerative changes redemonstrated at the left hip. This document has been electronically signed by: Jacky Mckeon MD on 09/19/2024 01:12:18
--- NOTE | ~2024-09-18 | XR_ITS ---
CLINICAL HISTORY: change mental status 1 view chest x-ray. Comparison: CR/SR - XR CHEST 1V - 09/03/22 07:04 EST Findings: No consolidation, pneumothorax, or effusion identified. The patient's face partially obscures the left lung apex. Heart size normal. Stable prominence of the right paratracheal stripe. Impression: 1. No acute cardiopulmonary process. No focal pulmonary consolidation. This document has been electronically signed by: Jacky Mckeon MD on 09/19/2024 00:06:50
[2024-09-18 23:21] VITALS: BP 150/60; BP 153/59; PULSE 50; PULSE 58; RESP 18; TEMP 36.6; O2SAT 99; BMI 19.4
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
[2024-09-19 00:57] LABS: MANUAL DIFF FLAG NO
[2024-09-19 00:58] LABS: Basophils Percent Auto 0.4 % (0-2); Eosinophils Absolute Auto 0.1 X10*3/uL (0.0-0.4); Eosinophils Percent Auto 0.7 % (0-4); Hematocrit 25.6 % (37.0-47.0); Hemoglobin 8.7 g/dl (12.0-16.0); Imm Gran Abs Auto 0.02 X10*3/uL (0.00-0.03); Imm Gran Pct Auto 0.3 % (0.0-0.4); Lymphocytes Absolute Auto 2.1 X10*3/uL (1.2-4.9); Lymphocytes Percent Auto 28.8 % (20-40); Mean Corpuscular Hemoglobin 28.8 pg (27.0-33.0); Mean Corpuscular Volume 84.8 fL (80.0-98.0); Mean Platelet Volume 8.8 fL (9.4-12.3); Monocytes Absolute Auto 0.6 X10*3/uL (0.1-1.2); Monocytes Percent Auto 8.4 % (2-11); Neutrophils Absolute Auto 4.5 x10*3/uL (2.0-8.3); Neutrophils Percent Auto 61.4 % (45-73); Platelet Count 180 X10*3/uL (160-400); Red Blood Count 3.02 X10*6/uL (4.20-5.50); Red Cell Distribution Width 13.5 % (11.0-16.0); White Blood Count 7.4 X10*3/uL (4.8-10.8)
[2024-09-19] MEDS: Acetaminophen 325 MG TABLET 650 MG PO (01:05)
[2024-09-19 01:17] LABS: Troponin-I High Sensitivity 8.4 ng/L (<3.5-17.0)
[2024-09-19 01:22] LABS: Alanine Aminotransferase 11 U/L (0-31); Albumin Level 3.4 g/dL (3.5-5.0); Alkaline Phosphatase 109 U/L (39-117); Anion Gap 11 (12-20); Aspartate Amino Transferase 19 U/L (5-31); Bilirubin Direct 0.2 mg/dL (0.0-0.5); Bilirubin Total 0.5 mg/dL (0.0-1.0); Blood Urea Nitrogen 26 mg/dL (9-16); Calcium 8.8 mg/dL (8.4-10.2); Carbon Dioxide 21 mmol/L (22-29); Chloride 112 mmol/L (96-108); Creatinine Clr Calc Pharmacy 41.1; Estimated Glomerular Filt Rate > 60; Glucose Random 94 mg/dL (60-115); Lipase 23 U/L (8-78); Potassium 3.2 mmol/L (3.3-5.1); Sodium 141 mmol/L (135-145); Total Protein 6.9 g/dL (6.5-8.0)
[2024-09-19 02:00] VITALS: BP 140/58; PULSE 62; RESP 18; TEMP 36.7; O2SAT 99
[2024-09-19 03:34] LABS: Appearance Urine Clear; Color Urine Yellow; Glucose Urine UA Negative (Negative); Leukocyte Esterase Urine Negative (Negative); Nitrite Urine Negative (Negative); PH 5.5 (5.0-9.0); Specific Gravity - Urine 1.015 (1.005-1.025); UMIC TRIGGER UACC YES; Urine Blood Negative (Negative); Urine Ketones Negative (Negative); Urine Protein 100 (2+) mg/dL (Neg-Trace)
--- NOTE | 2024-09-19 03:37 | PC.NURSE ---
Pt straight cath for urine sample, 600 mL of clear yellow urine. Pt needed redirection and encouragement to obtain sample. Sample sent to lab.
[2024-09-19 03:39] LABS: Bacteria Urine None Seen (None Seen); Hyaline Casts Urine 0-2 /LPF (0-2); RBC Urine 0-2 /HPF (0-2); Squamous Epithelial Cell Urine 0-2 /HPF (0-2); WBC Urine 0-5 /HPF (0-5)
[2024-09-19 04:00] VITALS: BP 146/66; PULSE 73; RESP 16; TEMP 36.8; O2SAT 99
[2024-09-19] MEDS: Potassium Chloride Packet 20 MEQ PACKET 40 MEQ PO (05:46)
[2024-09-19 05:53] VITALS: BP 146/62; PULSE 76; RESP 16; TEMP 36.5; O2SAT 94
== END 2024-09-19 05:56 | disposition home or self-care (01) ==
PROVIDERS: Emergency Provider Emergency Medicine
DX: F03.911 Unspecified dementia, unspecified severity, with agitation (principal); R41.82 Altered mental status, unspecified; M25.552 Pain in left hip; M25.551 Pain in right hip; Z79.899 Other long term (current) drug therapy
CPT/HCPCS: 36415; 71045; 73522; 80048; 80076; 81001; 83690; 84484; 85025; 99283; 99284

== ENCOUNTER → 2024-09-18 23:24 | Outpatient (BNV) | payer OTHER, SELFPAY | PROVIDERS: Emergency Provider Emergency Medicine; Visit Provider Radiology Diagnostic Radiology | DX: M16.12 Unilateral primary osteoarthritis, left hip (principal); R41.82 Altered mental status, unspecified | CPT/HCPCS: 71045; 73522 ==

== ENCOUNTER 2024-11-25 11:56 | Outpatient (REF) | payer MEDICAID, SELFPAY ==
[2024-11-25 13:10] LABS: MANUAL DIFF FLAG NO
[2024-11-25 13:33] LABS: Basophils Percent Auto 0.5 % (0-2); Eosinophils Absolute Auto 0.1 X10*3/uL (0.0-0.4); Eosinophils Percent Auto 0.8 % (0-4); Hematocrit 31.5 % (37.0-47.0); Hemoglobin 10.1 g/dl (12.0-16.0); Imm Gran Abs Auto 0.02 X10*3/uL (0.00-0.03); Imm Gran Pct Auto 0.3 % (0.0-0.4); Lymphocytes Absolute Auto 1.7 X10*3/uL (1.2-4.9); Lymphocytes Percent Auto 25.8 % (20-40); Mean Corpuscular HGB Conc 32.1 g/dl (31.0-35.0); Mean Corpuscular Hemoglobin 28.1 pg (27.0-33.0); Mean Corpuscular Volume 87.5 fL (80.0-98.0); Mean Platelet Volume 9.8 fL (9.4-12.3); Monocytes Absolute Auto 0.4 X10*3/uL (0.1-1.2); Monocytes Percent Auto 6.6 % (2-11); Neutrophils Absolute Auto 4.4 x10*3/uL (2.0-8.3); Platelet Count 228 X10*3/uL (160-400); Red Cell Distribution Width 13.2 % (11.0-16.0); White Blood Count 6.6 X10*3/uL (4.8-10.8)
--- OUTSIDE RECORDS SUMMARY | 2024-11-25 13:39 | XMS_ITS | Encounter Summary ---
Author Organization [employer] Address [address] [place] [address] 7 [place] [address] Care Team Providers Care Psychologist Personnel Name Role Phone Lilly King [facility] Primary Care Provider [phone] Annelise Hagan MD Primary Care Pro vider Lin Bajwa [employer] Primary Care Provider [phone] Encounter Details Date Type Department Care Team (Late st Contact Info) Description 02/07/2023 Orders Only [facility] MED & PEDS [address] [place], [place] [id number] Isela Bowser LPN Social History Tobacco Use Types Packs/Day Years Used Date Smoking Tobacco: Never Assessed Comments Unknown Sex and Gender Information Value Date Recorded Sex Assigned at Female 07/18/2022 10:14 AM EDT Legal Sex Female 10:14 AM EDT Gender Identity Female 07/18/2022 10:14 AM EDT Sexual Orientation Straight 07/18/2022 10 :14 AM EDT documented as of this encounter Plan of Treatment Not on file documented as of this encounter Visit Diagnoses Not on filedocumented in this encounter Care Teams Psychologist Personnel Relationship Specialty Start Date End Date Lilly King FNP PCP - General Family Medicine 09/08/22 06/21/23 Annelise Hagan MD [address] [place] [address] PCP - General Internal Medicine 06/22/23 05/20/24 Lin Bajwa FNP [address] [place] [address] PCP - General Family Medicine 09/16/24 documented as of this encounter
--- OUTSIDE RECORDS SUMMARY | 2024-11-25 13:39 | XMS_ITS | Encounter Summary ---
Author Organization [employer] Address [address] [facility] [address] [place] [address] Care Team Providers Care Research And Development Researcher Name Role Phone [address] [facility] Primary Care Provider [phone] Reason for Visit * Reason Comments Pre-visit Planning SDOH unable to reach , no voicemail Encounter Details Date Type Department Care Team ([facility] st Contact Info) Description 11/18/2024 Patient Outreach [facility] MED & PEDS [address] [place], [place] [phone] [facility] [address], [place] [phone] Pre-visit Planning (SDOH unable to reach, no voicemail) Social History Tobacco Use Types Packs/Day Years Used Date Smoking Tobacco: Never Passive Smoke Exposure: Never Smokeless Tobacco: Never Depression Answer Date Recorded Patient Health Questionnaire-9 Score 0 05/04/2023 Housing Stability Answer Date Recorded What is your housing situation today? I have anton pagan 05/06/[address] you li ve. Do you have problems with any of the following? Pests such as bugs, ants, or mice 05/06/2024 Food Insecurity Answer Date Recorded Within the past 12 months, y ou worried that your food would run out before you got money to buy more: Often true 05/06/2024 Within the past 12 months,th e food you bought just didn't last and you didn't have enough money to get more: Often true Transportation Answer Date Recorded In the past 12 months, has l ack of transportation kept you from medical appts, meetings, work or from getting things needed for daily living? No 05/06/2024 Utilities Answer Date Recorded In the past 12 months, has t he electric, gas, oil or water company threatened to shut off services in your home? No 05/06/2024 Depression Answer Date Recorded Patient Health Questionnaire-2 Score 0 05/04/2023 Internet Access Answer Date Recorded Internet Access Q1 Yes 05/20/2024 Internet Access Q2 Not on file 05/20/2024 Comments Unknown Sex and Gender Information Value Date Recorded Sex Assigned at Female 07/18/2022 10:14 AM EDT Legal Sex Female 10:14 AM EDT Gender Identity Female 07/18/2022 10:14 AM EDT Sexual Orientation Straight 07/18/2022 10 :14 AM EDT documented as of this encounter Progress Notes * Ramona Alva - 11/18/2024 2:02 PM EST SANDI Garcia placed outbound call to patient to complete pre-visit planning. No answer at this time. Patient name and were not confirmed. CC unable to leave a message due to no voicemail. documented in this encounter Plan of Treatment Not on file documented as of this encounter Visit Diagnoses Not on filedocumented in this encounter Additional Health Concerns Assessment Noted Time PHQ-9 Depression Total Score: 0 05/04/20 23 10:05 AM EDT documented as of this encounter Care Teams Research And Development Researcher Relationship Specialty Start Date End Date Lin Bajwa FNP [address] [place] [id number] PCP - General Family Medicine 09/16/24 documented as of this encounter
--- OUTSIDE RECORDS SUMMARY | 2024-11-25 13:39 | XMS_ITS | Clinical Summary ---
Author Organization [address] [place] [address] Address [address] [place] [address] Phone Care Team Providers Care Pattern Generator Operator Name Role Phone Claude Koo MD Primary Care Provider [phone] Allergies Active Allergy Reactions Criticality Noted Date Comments Penicillins Unknown 11/09/2023 Medications metFORMIN (FORTAMET) 500 mg 24 hr tablet Take 1 tablet (500 mg total) by mouth 1 (one) time each day with dinner. Do not crush, chew, or split. Active atorvastatin (LIPITOR) 40 mg tablet Take 1 tablet (40 mg total) by mouth at bedtime. Active dilTIAZem CD (CARDIZEM CD) 240 mg 24 hr capsule Take 1 capsule (240 mg total) by mouth 1 (one) time each day. Active Encounters Date Type Department Care Team Description 09/16/2024 10:45 AM EST Office Visit Orthopedic Surgery [facility] [address] [place] [phone] Vish Rai DPM Primary osteoarthritis of both feet (Primary Dx); Metatarsalgia of both feet; Type II diabetes mellitus with peripheral circulatory disorder (CMS/HCC); Diabetic mononeuropathy simplex (CMS/HCC); Pain in toe of right foot; Pain in toe of left foot; Dermatophytosis of nail; Difficulty walking from Last 3 Months Social History Tobacco Use Types Packs/Day Years Used Date Smoking Tobacco: Never Assessed Comments Unknown Sex and Gender Information Value Date Recorded Sex Assigned at Not on file Legal Sex Female 12:42 AM EST Gender Identity Not on file Sexual Orientation Not on file Last Filed Vital Signs Vital Sign Reading Time Taken Comments Blood Pressure - - Pulse - - Temperature - - Respiratory Rate - - Oxygen Saturation - - Inhaled Oxygen Concentration - - Weight 50.4 kg (111 lb 3.2 oz) 09/16/2024 11:14 AM EST Height 154.9 cm (5' 1 ) 09/16/2024 11:14 AM EST Body Mass Index 21.01 09/16/2024 11:14 AM EST Plan of Treatment Upcoming Encounters Date Type Department Care Team (Late st Contact Info) Description 12/16/2024 9:45 AM EDT Office Visit Orthopedic Surgery - [place] [phone] [phone] Vish Rai, DPM [address] [address] Health Maintenance Due Date Last Done Comments Diabetes: Annual GFR (Glomerular Filtration Rate) 1945 Diabetes: Annual Foot Exam 1955 Diabetes: Annual Retina Eye Exam 1955 Zoster Vaccines (1 of 2) 1995 Pneumococcal Vaccine: 50+ Years (2 of 2 - PCV) 02/19/2012 02/18/2011, 07/02/2001 DTaP,Tdap,and Td Vaccines (4 - Td or Tdap) 05/19/2020 05/19/2010, 07/07/1999, 05/19/1990 RSV Immunization Patients 60 + Years Old (1 - 1-dose 75+ series) 2020 Cholesterol Screening (Lipid Panel) 08/21/2022 Falls Risk Assessment 08/21/2022 Hepatitis C Screening 08/21/2022 Medicare Annual Wellness Visit 08/21/2022 Osteoporosis Screening (Bone Density Screening) 08/21/2022 Social Influencers of Health Screening 08/21/2022 Depression Screening 05/04/2024 05/04/2023 COVID-19 Vaccine (3 - 2023-2 5 season) 2024 12/15/2020, 11/17/2020 Influenza Vaccine (#1) 2024 2, 06/28/2012 Diabetes: Annual Urine Albumin-Creatinine Ratio (uACR) 07/01/2024 Diabetes: Blood Sugar Contro l Test (HGBA1C) 07/01/2024 05/04/2023 Hypertension/CHF/CAD Annual BMP Blood Test 07/01/2024 HIB Vaccines Aged Out No longer eligi ble based on patient's age to complete this topic HPV Vaccines Aged Out No longer eligi ble based on patient's age to complete this topic Hepatitis A Vaccines Aged Out No long er eligible based on patient's age to complete this topic Hepatitis B Vaccines Aged Out No long er eligible based on patient's age to complete this topic IPV Vaccines Aged Out No longer eligi ble based on patient's age to complete this topic MMR Vaccines Aged Out No longer eligi ble based on patient's age to complete this topic Meningococcal ACWY Vaccine Aged Out N o longer eligible based on patient's age to complete this topic Meningococcal B Vacine Aged Out No lo nger eligible based on patient's age to complete this topic RSV Immunization Patients Under 20 months Aged Out No longer eligible b ased on patient's age to complete this topic Varicella Vaccines Aged Out No longer eligible based on patient's age to complete this topic Insurance [employer] Advance Directives Documents on File Type Date Recorded Patient Core Cutter Expl anation Health Care Decision (hx) 11/13/2023 AD BARBER DIRECTIVE Health Care Decision (hx) 10/16/2023 AD BARBER DIRECTIVE Health Care Decision (hx) 10/16/2023 AD BARBER DIRECTIVE Health Care Decision (hx) 10/14/2023 HE ALTH CARE PROXY Health Care Decision (hx) 10/14/2023 HE ALTH CARE PROXY Care Teams Pattern Generator Operator Relationship Specialty Start Date End Date Koo, Claude, MD [address] [facility] [place] [address] PCP - General Internal Medicine 04/15/22
--- OUTSIDE RECORDS SUMMARY | 2024-11-25 13:39 | XMS_ITS | Encounter Summary ---
Author Organization [employer] Address [address] [facility] 7 [place] [address] Care Team Providers Care Manufacturing Engineer Chief Name Role Phone Annelise Hagan MD Primary Care Pro vider [facility] Primary Care Provider [phone] Reason for Visit * Reason Onset Date Comments Appointment Request 10/05/2023 Encounter Details Date Type Department Care Team ([facility] st Contact Info) Description 10/05/2023 Telephone [facility] MEDICINE [address] [place] [address] Annelise Hagan MD [address] [place] [address] Appointment Request Social History Tobacco Use Types Packs/Day Years Used Date Smoking Tobacco: Never Passive Smoke Exposure: Never Smokeless Tobacco: Never Depression Answer Date Recorded Patient Health Questionnaire-9 Score 0 05/04/2023 Housing Stability Answer Date Recorded What is your housing situation today? I have antondanni pagan 07/05/[address] you li ve. Do you have problems with any of the following? None of the above 07/05/2023 Food Insecurity Answer Date Recorded Within the past 12 months, y ou worried that your food would run out before you got money to buy more: Never True 07/05/2023 Within the past 12 months,th e food you bought just didn't last and you didn't have enough money to get more: Never True Transportation Answer Date Recorded In the past 12 months, has l ack of transportation kept you from medical appts, meetings, work or from getting things needed for daily living? No 07/05/2023 Utilities Answer Date Recorded In the past 12 months, has t he electric, gas, oil or water company threatened to shut off services in your home? No 07/05/2023 Depression Answer Date Recorded Patient Health Questionnaire-2 Score 0 05/04/2023 Comments Unknown Sex and Gender Information Value Date Recorded Sex Assigned at Female 07/18/2022 10:14 AM EDT Legal Sex Female 10:14 AM EDT Gender Identity Female 07/18/2022 10:14 AM EDT Sexual Orientation Straight 07/18/2022 10 :14 AM EDT documented as of this encounter Miscellaneous Notes * Telephone Encounter - Blanca Lyons - 10/05/2023 8:39 AM EST Tc from pt daughter requesting an appointment. Pt needs a TP appointment but program writer does not see anything available. Please contact daughter at [phone] (Greenlandic) documented in this encounter Plan of Treatment Not on file documented as of this encounter Visit Diagnoses Not on filedocumented in this encounter Additional Health Concerns Assessment Noted Time PHQ-9 Depression Total Score: 0 05/04/20 10:05 AM EDT documented as of this encounter Care Teams Manufacturing Engineer Chief Relationship Specialty Start Date End Date Annelise Hagan MD [address] [place] [address] PCP - General Internal Medicine 06/22/23 05/20/24 ArcadiaLin FNP [address] [place] [address] PCP - General Family Medicine 09/16/24 documented as of this encounter
--- OUTSIDE RECORDS SUMMARY | 2024-11-25 13:39 | XMS_ITS | Encounter Summary ---
Author Organization [employer] Address [address] [place] [address] Care Team Providers Care Bailiff Name Role Phone Garett Lin FIRESTOPPER INSTALLER Primary Care Provider [phone] Encounter Details Date Type Department Care Team (Latest Contact Info) Description 11/25/2024 Travel Social History Tobacco Use Types Packs/Day Years Used Date Smoking Tobacco: Never Passive Smoke Exposure: Never Smokeless Tobacco: Never Depression Answer Date Recorded Patient Health Questionnaire-9 Score 0 11/25/2024 Patient Health Questionnaire-9 Score 0 11/25/2024 Last PHQ-9: Questionnaire Data Not on file 0 11/25/2024 Housing Stability Answer Date Recorded What is [...] Date Recorded Patient Health Questionnaire-2 Score 0 11/25/2024 Internet Access Answer Date Recorded Internet Access Q1 Yes 05/20/2024 Internet Access Q2 Not on file 05/20/2024 Comments No Sex and Gender Information Value Date Recorded [...] Noted Time PHQ-9 Depression Total Score: 0 11/26/19 25 11:08 AM EDT documented as of this encounter Care Teams Bailiff Relationship Specialty Start Date End Date Lin Bajwa FNP [address] [place] [address] PCP - General Family Medicine 09/16/24 documented as of this encounter
--- OUTSIDE RECORDS SUMMARY | 2024-11-25 13:39 | XMS_ITS | Encounter Summary ---
Author Organization [employer] Address [address] [place] [address] 7 [place] [address] Care Team Providers Care Sewer Pipe Cleaner Name Role Phone Lilly King [facility] Primary Care Provider [phone] Annelise Hagan MD Primary Care Pro vider Lin Bajwa INSTRUCTOR DANCING Primary Care Provider [phone] Encounter Details Date Type Department Care Team (Late st Contact Info) Description 12/09/2022 Orders Only [facility] MED & PEDS [address] [place], [place] [phone] Isela Bowser LPN Social History Tobacco Use [...] on filedocumented in this encounter Care Teams Sewer Pipe Cleaner Relationship Specialty Start Date End Date Lilly King FNP PCP - General Family Medicine 09/08/22 06/21/23 Annelise Hagan MD [address] [place] [address] PCP - General Internal Medicine 06/22/23 05/20/24 Lin Bajwa FNP [address] [place] [address] PCP - General Family Medicine 09/16/24 documented as of this encounter
--- OUTSIDE RECORDS SUMMARY | 2024-11-25 13:39 | XMS_ITS | Encounter Summary ---
Author Organization [employer] Address [address] [facility] 7t [place] [address] Care Team Providers Care Cook Station Name Role Phone [facility] Primary Care Provider [phone] Reason for Visit * Reason Comments Establish Care Encounter Details Date Type Department Care Team ([facility] Contact Info) Description 11/25/2024 10:45 AM EDT Office Visit [facility] MED[facility]INE [address] [place], [place] [phone] [facility] [address] [place] [address] Dementia with agitation, unspecified dementia severity, unspecified dementia type ([facility]) (Primary Dx); Type 2 diabetes mellitus without complication, without long-term current use of insulin ([facility]) Social History Tobacco Use Types Packs/Day Years Used Date Smoking Tobacco: Never Passive Smoke Exposure: Never Smokeless Tobacco: Never Tobacco Cessation:Counseling Given: Not Answered Depression Answer Date Recorded Patient Health Questionnaire-9 [...] AM EDT documented as of this encounter Last Filed Vital Signs Vital Sign Reading Time Taken Comments Blood Pressure 158/70 11/25/2024 11:07 AM EDT Pulse 98 11/25/2024 11:07 AM EDT Temperature 36.1 ??C (97 ??F) 11/25/2024 11:07 AM EDT Respiratory Rate 20 11/25/2024 11:07 AM EDT Oxygen Saturation - - Inhaled Oxygen Concentration - - Weight 50.8 kg (112 lb) 11/25/2024 11:07 AM EDT Height 160 cm (5' 3 ) 11/25/2024 11:07 AM EDT Body Mass Index 19.84 11/25/2024 11:07 AM EDT documented in this encounter Plan of Treatment Scheduled Orders Name Type Priority Associated Diagnoses Orde r Schedule Comprehensive Metabolic Panel Lab Routine Type 2 diabetes mellitus without complication, without long-term current use of insulin ([facility]) Expected: 11/25/2024 (Approximate), Expires: 11/25/2025 Lipid Panel, Standard Lab Routine Type 2 diabetes mellitus without complication, without long-term current use of insulin ([facility]) Expected: 11/25/2024 (Approximate), Expires: 11/25/2025 TSH W/Reflex to FT4 Lab Routine Type 2 diabetes mellitus without complication, without long-term current use of insulin ([facility]) Dementia with agitation, unspecified dementia severity, unspecified dementia type ([facility]) Expected: 11/25/2024 (Approximate), Expires: 11/25/2025 Vitamin B12/Folate, Serum Panel Lab Routine Dementia with agitation, unspecified dementia severity, unspecified dementia type ([facility]) Expected: 11/25/2024, Expires: 11/25/2025 documented as of this encounter Procedures Procedure Name Priority Date/Time Associated Diagnosis Comments CBC WITH AUTO DIFFERENTIAL Routine 11/25/2024 11:58 AM EDT Dementia with agitation, unspecified dementia severity, unspecified dementia type ([facility]) POCT GLYCATED HEMOGLOBIN, TOTAL Routine 11/25/2024 11:19 AM EDT Type 2 diabetes mellitus without complication, without long-term current use of insulin ([facility]) POCT GLUCOSE Routine 11/25/2024 11:19 AM EDT Type 2 diabetes mellitus without complication, without long-term current use of insulin ([facility]) documented in this encounter Results * (ABNORMAL) CBC auto differential (11/25/2024 11:58 AM EDT) White Blood Count 6.6 4.8 - 10.8 X10*3/uL [facility] Red Blood Count 3.60(L) 4.20 - 5.50 X10*6/uL [facility] Hemoglobin 10.1(L) 12.0 - 16.0 g/dl [facility] Hematocrit 31.5(L) 37.0 - 47.0 % [facility] Mean Corpuscular Volume 87.5 80.0 - 98.0 fL [facility] Mean Corpuscular Hemoglobin 28.1 27.0 - 33.0 pg [facility] Mean Corpuscular HGB Conc 32.1 31.0 - 35.0 g/dl [facility] Red Cell Distribution Width 13.2 11.0 - 16.0 % [facility] Platelet Count 228 160 - 400 X10*3/uL [facility] Mean Platelet Volume 9.8 9.4 - 12.3 fL [facility] Neutrophils Percent Auto 66.0 45 - 73 % [facility] Imm Gran Pct Auto 0.3 0.0 - 0.4 % [facility] Lymphocytes Percent Auto 25.8 20 - 40 % [facility] Monocytes Percent Auto 6.6 2 - 11 % [facility] Eosinophils Percent Auto 0.8 0 - 4 % [facility] Basophils Percent Auto 0.5 0 - 2 % [facility] NRBC Pct Auto 0.0 0.0 - 0.2 /100WBC [facility] Neutrophils Absolute Auto 4.4 2.0 - 8.3 x10*3/uL [facility] Imm Gran Abs Auto 0.02 0.00 - 0.03 X10*3/uL [facility] Lymphocytes Absolute Auto 1.7 1.2 - 4.9 X10*3/uL [facility] Monocytes Absolute Auto 0.4 0.1 - 1.2 X10*3/uL [facility] Eosinophils Absolute Auto 0.1 0.0 - 0.4 X10*3/uL [facility] Basophils Absolute Auto 0.0 0.0 - 0.2 X10*3/uL [facility] NRBC Abs Auto 0.000 0.0 - 0.012 X10*3/uL [facility] Blood Venous blood specimen / Unknown 11/25/2024 11:58 AM EDT 11/25/2024 1:05 PM EDT [facility] [employer] LAB BLOOD ORDERABLES Final Re sult [facility] [address] [place], [place] [phone] * POCT Glucose (11/25/2024 11:19 AM EDT) Glucose Blood, POC 137 60 - 200 mg/dL QC Media Lot # [id number] Lot# Expiration Date ,842,[id number] Blood Capillary blood specimen / Unknown 11/25/2024 11:19 AM EDT [facility] [employer] POINT OF CARE TEST ENTER/EDIT ORDERABLES Final Result * (ABNORMAL) POCT HGB A1C (11/25/2024 11:19 AM EDT) Hemoglobin A1C 6.0 4.0 - 6.0 % QC Media Lot # [id number] Lot# Expiration Date Blood 11/25/2024 11:1 9 AM EDT [facility] [employer] POINT OF CARE TEST ENTER/EDIT ORDERABLES Final Result documented in this encounter Visit Diagnoses Diagnosis Dementia with agitation, unspecified dementia severity, unspecified dementia type (CMS/HCC)- Primary Type 2 diabetes mellitus without complication, without long-term current use of insulin ([facility]) documented in this encounter Additional Health Concerns Assessment Noted Time PHQ-9 Depression Total Score: 0 11/26/19 25 11:08 AM EDT documented as of this encounter Care Teams Cook Station Relationship Specialty Start Date End Date Lin Bajwa FNP [address] [place] [address] PCP - General Family Medicine 09/16/24 documented as of this encounter
--- OUTSIDE RECORDS SUMMARY | 2024-11-25 13:39 | XMS_ITS | Encounter Summary ---
Author Organization [employer] Address [address] [place] [address] 7 [place] [address] Care Team Providers Care Paramedic Instructor Name Role Phone Lilly KingP Primary Care Provider [phone] Annelise Hagan MD Primary Care Pro vider Lin Bajwa Primary Care Provider [phone] Encounter Details Date Type Department Care Team (Late st Contact Info) Description 04/03/2023 Orders Only [facility] MEDICINE [address] [place] [address] Juliet Fitzgerald LPN Social History Tobacco Use Types Packs/Day [...] on filedocumented in this encounter Care Teams Paramedic Instructor Relationship Specialty Start Date End Date Lilly King FNP PCP - General Family Medicine 09/08/22 06/21/23 Annelise Hagan MD [address] [place] [address] PCP - General Internal Medicine 06/22/23 05/20/24 Lin Bajwa FNP [address] [place] [address] PCP - General Family Medicine 09/16/24 documented as of this encounter
--- OUTSIDE RECORDS SUMMARY | 2024-11-25 13:39 | XMS_ITS | Encounter Summary ---
Author Organization [employer] Address [address] [facility] 7 [place] [address] Care Team Providers Care Clinical Operations Leader Name Role Phone Annelise Hagan MD Primary Care Pro vider [facility] Primary Care Provider [phone] Encounter Details Date Type Department Care Team ([facility] st Contact Info) Description 11/10/2023 Telephone [facility] MEDICINE [address] [place] [address] Annelise Hagan MD [address] [place] [address] Social History Tobacco Use Types Packs/Day Years [...] documented as of this encounter Care Teams Clinical Operations Leader Relationship Specialty Start Date End Date Annelise Hagan MD [address] [place] [address] PCP - General Internal Medicine 06/22/23 05/20/24 [place] FNP [address] [place] [address] PCP - General Family Medicine 09/16/24 documented as of this encounter
--- OUTSIDE RECORDS SUMMARY | 2024-11-25 13:39 | XMS_ITS | Clinical Summary ---
Author Organization [employer] Address [address] [facility] 7t [place] [address] Care Team Providers Care Public Transportation Inspector Name Role Phone Garett [facility] Primary Care Provider [phone] Allergies Active Allergy Reactions Criticality Noted Date Comments Penicillin V 11/03/2010 Other reaction(s): unspecified Penicillins 06/12/2023 Medications Blood Glucose Monitoring Suppl (ONE TOUCH ULTRA 2) w/Device kit USE TO TEST BLOOD SUGAR TWICE DAILY 2 Active Lancets (That's Us TechnologiesTouch Delica Plus [id number]) misc USE TO TEST BLOOD SUGAR TWICE DAILY 100 each 11 3 Active triamcinolone (Kenalog) 0.1 % cream APPLY TO THE AFFECTED AREA(S) OF lower LEGS TWICE DAILY FOR UP TO 2 WEEKS 30 g 1 3 Active apixaban (Eliquis) 5 MG tablet Take 1 tablet (5 mg) by mouth 2 times daily. 60 tablet 5 3 Active Diclofenac Sodium 1 % gelIndications:Linda bret osteoarthritis of left hip APPLY 2 GRAMS TOPICALLY TWICE DAILY IN THE MORNING AND AT BEDTIME NEEDED MUSCLE PAIN 100 g 3 4 Active metFORMIN XR (Glucophage-XR) 500 MG 24 hr tablet TAKE 1 TABLET BY MOUTH EVERY DAY IN THE EVENING WITH A MEAL 90 tablet 1 4 Active atorvastatin (Lipitor) 40 MG tablet TAKE 1 TABLET BY MOUTH AT BEDTIME 90 tablet 4 Active dilTIAZem ER (Tiazac) 240 MG 24 hr capsule TAKE 1 CAPSULE BY MOUTH EVERY MORNING 30 capsule 5 4 Active bisoprolol (Zebeta) 5 MG tablet TAKE 1 TABLET BY MOUTH EVERY MORNING 30 tablet 5 5 Active QUEtiapine (SEROquel) 25 MG tabletIndications: Dementia with agitation, unspecified dementia severity, unspecified dementia type ([facility]) Take 1/2 tablet at bedtime. OK to increase to 1 full tablet if needed 30 tablet 3 5 Active acetaminophen (Tylenol Extra Strength) 500 MG tabletIndications: Type 2 diabetes mellitus without complication, without long-term current use of insulin ([facility]) Take 2 tablets (1,000 mg) by mouth every 6 (six) hours if needed for mild pain. 30 tablet 5 11/26/19 26 Active Active Problems Problem Noted Date Diagnosed Date Pedal edema 05/07/2023 Assessment & Plan (05/07/2023 9:51 AM EDT): ?? Chronic bilateral pitting edema, denies any SOB, palpitations, chest pain, dizziness, vision change, N/V/D ?? Echo and BLE venous doppler pending, number provided to daughters for [facility] Centralized scheduling ?? Previous ?DVT, not taking Eliquis. Unclear med adherence to BP meds, with initial and repeat BP elevated in office today. Asymptomatic ?? Discussed ED eval, and pt and daughters report pt would refuse. Strict ED precautions reviewed ?? Triamcinolone cream for venous stasis dermatitis. Reviewed use. Closed nondisplaced fracture of left acetabulum with delayed healing 01/16/2023 Overview (06/22/2023): Pt has continued L hip pain d/t old fracture to L hip and pelvis. [facility] declined surgery in the past d/t pt age and comorbidities. Requesting 2nd opinion. Assessment & Plan (06/22/2023 2:49 PM EDT): Refer [facility] F/u PRN Osteoarthritis involving mul tiple joints on both sides of body 01/16/2023 Dementia with agitation 01/16/2023 Overview (06/22/2023): Family is looking for apartment for pt to have her own place. Then the family can have COMPOSER TEACHING ARTIST approved by an outside agency: [employer] or [employer] Pending Section 8 Need updated letter listing that patient requires direct supervision for medications, ambulation, and IADLs Cannot live with daughters b/c they have stairs Assessment & Plan (06/22/2023 2:48 PM EDT): Directed family to Forms team for assistance with letter Also if family needs to they can get [facility] involved F/u PRN Osteoarthritis 03/28/2012 Benign hypertension 09/18/1959 Overview (06/22/2023): Treating with Bisoprolol 5 mg daily and Diltiazem 240 mg daily Assessment & Plan (06/22/2023 2:42 PM EDT): Initial BP 184/81 [place] rechecked, decreased slightly Unknown if took meds today d/t poor med management at current SNF Daughters will speak with staff again at [facility] Pending approval for section 8 housing where pt can receive COMPOSER TEACHING ARTIST and better 1 on 1 care Continue current meds, will not alter regimen at this time. Assessment & Plan (05/07/2023 9:54 AM EDT): ?? BP goal <140/90 mmHg ?? Initial and repeat elevated, asymptomatic ?? Continues with Diltiazem 240mg daily and bisoprolol 5mg daily ?? Pt selective with meds ?? Encouraged to monitor BP at home, return precautions and ED precautions Diabetes mellitus type 2, uncomplicated 09/18/18 60 Assessment & Plan (06/22/2023 2:50 PM EDT): Glucose 129 on 06/13/23 Continue Metformin 500 mg 1 tablet at bedtime F/u PRN Assessment & Plan (05/07/2023 9:52 AM EDT): Lab Results Component Value Date HGBA1C 6.7 (A) 05/04/2023 ?? Well controlled ?? Continues with metformin XR 500mg daily Hyperlipidemia 09/18/1959 Hypothyroidism 09/18/1959 Encounters Date Type Department Care Team Description 11/25/2024 10:45 AM EDT Office Visit [facility] MEDICINE [address] [place] [phone] Ashland Lin, [facility] Dementia with agitation, unspecified dementia severity, unspecified dementia type ([facility]) (Primary Dx); Type 2 diabetes mellitus without complication, without long-term current use of insulin ([facility]) 11/25/2024 Travel 11/18/2024 Patient Outreach [facility] PEDS [address] [place] [address] Ash[place]Lin, [facility] Pre-visit Planning (SDOH unable to reach, no voicemail) 09/29/2024 Refill [facility] [address] [place], [place] [phone] Annelise Hagan MD 08/30/2024 Refill [facility] MED & PEDS [address] [place], [place] [phone] Annelise Hagan MD 08/28/2024 Refill [facility] MEDICINE [address] [place], [place] [phone] Annelise Hagan MD from Last 3 Months Immunizations Name Administration Dates Next Due Influenza High-dose Quadriva lent Preservative Free 07/15/2022 Influenza, Split (incl. javier fied surface antigen) 06/28/2012 Moderna Covid-19 Vaccine 12+ 12/15/2020,11/18/19 21 Pneumococcal Polysaccharide PPSV23 02/18/2011, TD (adult), 2 Lf tetanus tox oid, preservative free, adsorbed 05/19/2010,07/07/1999,05/19/1990 Social History Tobacco Use Types Packs/Day Years [...] the past 12 months, has t he groSolar, gas, oil or water company threatened to [...] Orientation Straight 07/18/2022 10 :14 AM EDT Last Filed Vital Signs Vital Sign Reading Time Taken Comments Blood Pressure 158/70 11/25/2024 11:07 AM EDT Pulse 98 11/25/2024 11:07 AM EDT Temperature 36.1 ??C (97 ??F) 11/25/2024 11:07 AM EDT Respiratory Rate 20 11/25/2024 11:07 AM EDT Oxygen Saturation 100% 06/13/2023 10:26 AM EDT Inhaled Oxygen Concentration - - Weight 50.8 kg (112 lb) 11/25/2024 11:07 AM EDT Height 160 cm (5' 3 ) 11/25/2024 11:07 AM EDT Body Mass Index 19.84 11/25/2024 11:07 AM EDT Plan of Treatment Health Maintenance Due Date Last Done Comments Lipid Panel 1945 Diabetes: Foot Exam 1955 Eye Exam 1955 Alcohol/Substance Use Screening 1957 Hepatitis C Screening 1963 Diabetes: Urine Protein Screening 1964 Zoster Vaccines (1 of 2) 1995 DTaP/Tdap/Td Vaccines (1 - Tdap) 05/20/2010 05/19/2010, 07/07/1999, 05/19/1990 Pneumococcal Vaccine: 50+ Years (2 of 2 - PCV) 02/19/2012 02/18/2011, 07/02/2001 RSV Patients and Patients Aged 60 years or older (1 - 1-dose 75+ series) 2020 COVID-19 Vaccine (3 - 2023-2 5 season) 2024 12/15/2020, 11/17/2020 Influenza Vaccine (#1) 2024 2, 06/28/2012 SDOH Screening 05/06/2025 05/06/2024 Diabetes: Hemoglobin A1C 05/28/2025 025, 05/04/2023 Depression Screening 11/25/2025 11/25/2024, 11/25/2024 Tobacco Screening 11/25/2025 11/25/2024 HIB Vaccines Aged Out No longer eligi [...] patient's age to complete this topic Meningococcal Vaccine Aged Out No renay be eligible based on patient's age to complete this topic RSV under 20 months Aged Out No longe r eligible based on patient's age to complete this topic Rotavirus Vaccines Aged Out No longer eligible based on patient's age to complete this topic Procedures Procedure Name Priority Date/Time Associated Diagnosis Comments CBC WITH AUTO DIFFERENTIAL Routine 11/25/2024 11:58 AM EDT Dementia with agitation, unspecified dementia severity, unspecified dementia type ([facility]) POCT GLUCOSE Routine 11/25/2024 11:19 AM EDT Type 2 diabetes mellitus without complication, without long-term current use of insulin ([facility]) POCT GLYCATED HEMOGLOBIN, TOTAL Routine 11/25/2024 11:19 AM EDT Type 2 diabetes mellitus without complication, without long-term current use of insulin ([facility]) from Last 3 Months Results * (ABNORMAL) CBC auto differential (11/25/2024 11:58 AM EDT) White Blood Count 6.6 4.8 - 10.8 X10*3/uL [facility] Red Blood Count 3.60(L) 4.20 - 5.50 X10*6/uL [facility] Hemoglobin 10.1(L) 12.0 - 16.0 g/dl [facility] Hematocrit 31.5(L) 37.0 - 47.0 % [facility] Mean Corpuscular Volume 87.5 80.0 - 98.0 fL [facility] Mean Corpuscular Hemoglobin 28.1 27.0 - 33.0 pg [facility] Mean Corpuscular HGB Conc 32.1 31.0 - 35.0 g/dl [facility] Red Cell Distribution Width 13.2 11.0 - 16.0 % [facility] Platelet Count 228 160 - 400 X10*3/uL [facility] Mean Platelet Volume 9.8 9.4 - 12.3 fL [facility] Neutrophils Percent Auto 66.0 45 - 73 % [facility] Imm Gran Pct Auto 0.3 0.0 - 0.4 % [facility] Lymphocytes Percent Auto 25.8 20 - 40 % [facility] Monocytes Percent Auto 6.6 2 - 11 % [facility] Eosinophils Percent Auto 0.8 0 - 4 % [facility] Basophils Percent Auto 0.5 0 - 2 % [facility] NRBC Pct Auto 0.0 0.0 - 0.2 /100WBC [facility] Neutrophils Absolute Auto 4.4 2.0 - 8.3 x10*3/uL [facility] Imm Gran Abs Auto 0.02 0.00 - 0.03 X10*3/uL [facility] Lymphocytes Absolute Auto 1.7 1.2 - 4.9 X10*3/uL [facility] Monocytes Absolute Auto 0.4 0.1 - 1.2 X10*3/uL [facility] Eosinophils Absolute Auto 0.1 0.0 - 0.4 X10*3/uL [facility] Basophils Absolute Auto 0.0 0.0 - 0.2 X10*3/uL [facility] NRBC Abs Auto 0.000 0.0 - 0.012 X10*3/uL [facility] Blood Venous blood specimen / Unknown 11/25/2024 11:58 AM EDT 11/25/2024 1:05 PM EDT [facility] LAB BLOOD ORDERABLES Final Re sult [facility] [address] [place] [phone] * (ABNORMAL) POCT HGB A1C (11/25/2024 11:19 AM EDT) Hemoglobin A1C 6.0 4.0 - 6.0 % QC Media Lot # [id number] Lot# Expiration Date Blood 11/25/2024 11:1 9 AM EDT [facility] POINT OF CARE TEST ENTER/EDIT ORDERABLES Final Result * POCT Glucose (11/25/2024 11:19 AM EDT) Glucose Blood, POC 137 60 - 200 mg/dL QC Media Lot # [id number] Lot# Expiration Date [id number] Blood Capillary blood specimen / Unknown 11/25/2024 11:19 AM EDT [facility] POINT OF CARE TEST ENTER/EDIT ORDERABLES Final Result from Last 3 Months Insurance [facility] STANDARD MEDICARE Advance Directives Documents on File Type Date Recorded Patient Business Technology Professor Expl anation Advance Directives and Living Will 11/19/2024 1:40 PM HCP (Not Active) HealthCare Proxy 11/19/2024 Care Teams Public Transportation Inspector Relationship Specialty Start Date End Date Lin Bajwa FNP [address] [place] [address] PCP - General Family Medicine 09/16/24
[2024-11-25 13:55] LABS: Alanine Aminotransferase 15 U/L (0-31); Albumin Level 3.9 g/dL (3.5-5.0); Alkaline Phosphatase 126 U/L (39-117); Anion Gap 12 (12-20); Aspartate Amino Transferase 19 U/L (5-31); Bilirubin Total 0.6 mg/dL (0.0-1.0); Blood Urea Nitrogen 20 mg/dL (9-16); Calcium 9.8 mg/dL (8.4-10.2); Carbon Dioxide 25 mmol/L (22-29); Chloride 109 mmol/L (96-108); Cholesterol 163 mg/dL (<200); Estimated Glomerular Filt Rate > 60; Glucose Random 100 mg/dL (60-115); HDL Cholesterol 62 mg/dL (>40); LDL Cholesterol Calculated 79 mg/dL (<100); Potassium 4.3 mmol/L (3.3-5.1); Sodium 142 mmol/L (135-145); Total Protein 8.5 g/dL (6.5-8.0); Triglycerides 110 mg/dL (<150)
[2024-11-25 14:21] LABS: TSH reflex Free T4 < 0.01 uIU/mL (0.32-4.0)
[2024-11-25 14:42] LABS: Folate 12.5 ng/mL (> or = 4.0); Vitamin B12 284 pg/mL (200-900)
[2024-11-25 15:51] LABS: Free T4 (Free Thyroxine) 1.25 ng/dL (0.71-1.85)
== END 2024-11-25 11:57 | disposition home or self-care (01) ==
LOC: HO.HHCL 11:56
PROVIDERS: Visit Provider Registered Nurse
DX: F03.911 Unspecified dementia, unspecified severity, with agitation (principal); E11.9 Type 2 diabetes mellitus without complications
CPT/HCPCS: 36415; 80053; 80061; 82607; 82746; 84439; 84443; 85025

== ENCOUNTER → 2025-09-15 15:22 | Outpatient (BNV) | payer MEDICARE, MEDICAID, SELFPAY | PROVIDERS: Emergency Provider Emergency Medicine; Visit Provider Radiology Diagnostic Radiology | DX: R53.1 Weakness (principal) | CPT/HCPCS: 71045 ==

== ENCOUNTER → 2025-09-15 15:22 | Outpatient (BNV) | payer MEDICARE, MEDICAID, SELFPAY | PROVIDERS: Admitting Provider Family Medicine; Emergency Provider Emergency Medicine; Visit Provider Internal Medicine | DX: R00.0 Tachycardia, unspecified (principal) | CPT/HCPCS: 93010 ==

== ENCOUNTER → 2025-09-15 16:07 | Outpatient (BNV) | payer MEDICARE, MEDICAID, SELFPAY | PROVIDERS: Emergency Provider Emergency Medicine; Visit Provider Family Medicine | DX: N12 Tubulo-interstitial nephritis, not specified as acute or chronic (principal) | CPT/HCPCS: 99233 ==